=== PATIENT | female | born 1975 | race African-American/Black ===

== ENCOUNTER 2019-06-05 22:20 | Emergency (ER) | payer SELFPAY ==
[~2019-06-05] VITALS: Ht 165.1 cm; Wt 83.0 kg
[2019-06-05] MEDS: METHYLPREDNISOLONE SOD SUCC 125 MG/2 ML VIAL IV ONE (23:14)
[2019-06-05] MEDS: FAMOTIDINE 20MG/2ML VIAL IV ONE (23:14)
[2019-06-05] MEDS: DIPHENHYDRAMINE 50MG/ML VIAL IV ONE (23:14)
[2019-06-05 23:38] LABS: CHLORIDE 104 mEq/L (98-107)
[2019-06-05 23:43] LABS: BASOPHILS % 0.5 % (0.0-2.0); EOSINOPHILS % 1.8 % (0.0-5.0); HEMATOCRIT. 34.9 % (36.0-48.0); HEMOGLOBIN. 11.9 g/dL (12.0-16.0); LYMPHOCYTES % 37.9 % (20.0-50.0); MEAN CORPUSCULAR VOLUME 96.9 fL (81.0-99.0); MEAN PLATELET VOLUME 9.6 fl (7.4-10.4); MONOCYTES % 8.6 % (2.0-8.0); NEUTROPHILS % 51.2 % (40.0-76.0); PLATELET 197 x1000/uL (130-400); RED CELL DISTRIBUTION WIDTH 13.8 % (11.6-14.6)
[2019-06-06] MEDS: EPINEPHRINE 1:1000 1 MG/ML AMP INJ ONE (00:49)
[2019-06-06] MEDS: PREDNISONE 20MG TABLET PO ONE (01:25)
[2019-06-06 05:04] VITALS: BP 124/64
== END 2019-06-06 05:45 | disposition home or self-care (01) ==
LOC: ER 22:20
DX: R22.0 Localized swelling, mass and lump, head (principal); T39.315A Adverse effect of propionic acid derivatives, initial encounter; J45.909 Unspecified asthma, uncomplicated; Y92.89 Other specified places as the place of occurrence of the external cause
CPT/HCPCS: 36415; 71045; 80053; 83880; 84484; 85025; 93005; 96374; 96375; 99284; J1200; J2930; J3490; J7512